=== PATIENT | male | born 1995 | race African-American/Black ===

== ENCOUNTER 2018-08-14 07:57 | Emergency (ER) | payer SELFPAY ==
--- NOTE | 2018-08-14 08:30 | RAD ---
RIGHT ANKLE THREE VIEWS: History: Right ankle pain, injury. FINDINGS/IMPRESSION: There is soft tissue swelling. No fracture or dislocation or bony destruction is seen. The ankle mort ise is maintained. POS: [facility]
[2018-08-14] MEDS ORDERED: Ketorolac Tromethamine 60 MG/2 ML VIAL ONE (08:45)
== END 2018-08-14 09:15 | disposition home or self-care (01) ==
LOC: ERS 07:57
DX: S93.401A Sprain of unspecified ligament of right ankle, initial encounter (principal); F17.210 Nicotine dependence, cigarettes, uncomplicated; W51.XXXA Accidental striking against or bumped into by another person, initial encounter; Y93.67 Activity, basketball
CPT/HCPCS: 96372; J1885